=== PATIENT | male | born 2000 | race Hispanic/Latino ===

== ENCOUNTER 2023-09-22 00:14 | Emergency (ER) | payer OTHER, SELFPAY ==
[2023-09-22 00:59] LABS: Absolute Basophils 0.1 K/uL (0-0.5); Absolute Eosinophils 0.4 K/uL (0-0.5); Absolute Lymphocytes (CBC) 2.1 K/uL (0.7-4.9); Hemoglobin 13.8 g/dL (13.6-17.9)
[2023-09-22 01:04] LABS: Specific Gravity 1.027 (1.005-1.030); Sqamous Epithelial None Seen /HPF (None Seen); Urine Bacteria <20 /HPF (<20); Urine Bilirubin NEGATIVE (Negative); Urine Blood Negative (Negative); Urine Clarity Clear (Clear); Urine Color Light-Yellow (Yellow); Urine Culture Reflex Order NOT NEEDED; Urine Glucose NEGATIVE (Negative); Urine Ketones NEGATIVE (Negative); Urine Microscopic Reflex YN ORDER UMIC; Urine Mucus Slight /HPF (None Seen); Urine Nitrite NEGATIVE (Negative); Urine Protein TRACE (Negative); Urine RBC None Seen /HPF (None Seen); Urine Urobilinogen 1+ (Normal); Urine WBC <5 /HPF (<5); Urine Yeast (Budding) Trace /HPF (None Seen); Urine pH 6.5 (5.0-7.0)
[2023-09-22 01:06] LABS: Hematocrit 39.8 % (39.6-49.0); Lymphocytes % 24.7 % (15.3-44.8); MCH 31.8 pg (27.0-35.0); MCHC 34.6 g/dL (32.0-36.0); MCV 92.1 fL (80-100); MPV 7.9 fL (7.6-11.3); Monocytes % 11.1 % (3.3-12.3); Neutrophils % 58.2 % (41.7-73.7); Nucleated Red Blood Cells % 0.2 % (0-0); Platelets 299 thou/uL (152-406); RBC Red Blood Cell Count 4.33 M/uL (4.33-5.43)
[2023-09-22 01:10] LABS: Albumin 3.8 g/dL (3.4-5.0); Anion Gap 4.8 mEq/L (5.0-15.0); Bilirubin Total 0.5 mg/dL (0.2-1.0); Potassium 3.8 mEq/L (3.5-5.1); Protein, Total 7.8 g/dL (6.4-8.2)
[2023-09-22] MEDS ORDERED: ONDANSETRON 4 MG/2 ML VIAL ONE (01:25)
[2023-09-22] MEDS ORDERED: MORPHINE 4 MG/ML SYR ONE (01:26)
[2023-09-22] MEDS ORDERED: KETOROLAC 30 MG/ML INJ ONE (01:26)
[2023-09-22] MEDS ORDERED: NA CHLORIDE 0.9% 2,000 ML ONE (01:26)
--- NOTE | 2023-09-22 04:22 | ER ---
Nurse's Notes [facility] Name: Ranjith Dunn Jr Age: 23 yrs Sex: Male : 2000 Arrival Date: 09/22/2023 Time: 00:14 Bed 4 Private MD: Diagnosis: Nonspecific mesenteric lymphadenitis Presentation: 09/21 00:26 Chief complaint: Patient states: left lower abdominal pain. Denies N/V/D. Coronavirus vc1 screen: Client denies travel out of the [place] in the last 14 days. At this time, the client does not indicate any symptoms associated with coronavirus-19. Ebola Screen: Patient negative for fever greater than or equal to 101.5 degrees Fahrenheit, and additional compatible Ebola Virus Disease symptoms Patient denies exposure to infectious person. Patient denies travel to an Ebola-affected area in the 21 days before illness onset. No symptoms or risks identified at this time. Initial Sepsis Screen: Does the patient meet any 2 criteria? No. Patient's initial sepsis screen is negative. Does the patient have a suspected source of infection? No. Patient's initial sepsis screen is negative. Risk Assessment: Do you want to hurt yourself or someone else? Patient reports no desire to harm self or others. Onset of symptoms was September 22, 2023. 00:26 Method Of Arrival: Ambulatory vc1 00:26 Acuity: LILA 3 vc1 Triage Assessment: 00:32 General: Appears in no apparent distress. comfortable, slender, well groomed, Behavior vc1 is calm, cooperative, flat. Pain: Complains of pain in left lower quadrant Pain does not radiate. Pain currently is 7 out of 10 on a pain scale. at worst was 10 out of 10 on a pain scale. Quality of pain is described as sharp. EENT: No deficits noted. No signs and/or symptoms were reported regarding the EENT system. Neuro: Level of Consciousness is awake, alert, obeys commands, Oriented to person, place, time, situation, Appropriate for age. Cardiovascular: No deficits noted. Respiratory: Airway is patent Respiratory effort is even, unlabored, Respiratory pattern is regular, symmetrical. GI: Abdomen is flat, non-distended, Reports lower abdominal pain, Patient currently denies diarrhea, nausea, vomiting. : No deficits noted. No signs and/or symptoms were reported regarding the genitourinary system. Derm: Skin is intact, is healthy with good turgor, Skin is dry, Skin is normal, Skin temperature is warm. Musculoskeletal: Circulation, motion, and sensation intact. Range of motion: intact in all extremities, Parent/caregiver report the patient having. Historical: - Allergies: 00:28 ants; vc1 - PMHx: 00:28 None; vc1 - PSHx: 00:28 None; vc1 - Immunization history:: Adult Immunizations up to date, Client reports receiving the 2nd dose of the Covid vaccine. - Infectious Disease History:: Denies. - Social history:: Smoking status: Patient denies any tobacco usage or history of. - Family history:: not pertinent. Screenin:29 [facility] ED Fall Risk Assessment (Adult) History of falling in the last 3 months, vc1 including since admission No falls in past 3 months (0 pts) Confusion or Disorientation No (0 pts) Intoxicated or Sedated No (0 pts) Impaired Gait No (0 pts) Mobility Assist Device Used No (0 pt) Altered Elimination No (0 pt) Score/Fall Risk Level 0 - 2 = Low Risk Oriented to surroundings, Maintained a safe environment, Educated pt \T\ family on fall prevention, incl call for assistance when getting out of bed. Abuse screen: Denies threats or abuse. Nutritional screening: No deficits noted. Tuberculosis screening: No symptoms or risk factors identified. Assessment: 00:58 General: Appears in no apparent distress. Behavior is calm, cooperative. Pain: jm12 Complains of pain in abdomen. Neuro: No deficits noted. Cardiovascular: No deficits noted. Respiratory: No deficits noted. GI: Reports lower abdominal pain. : No deficits noted. No signs and/or symptoms were reported regarding the genitourinary system. EENT: No deficits noted. No signs and/or symptoms were reported regarding the EENT system. Derm: No deficits noted. No signs and/or symptoms reported regarding the dermatologic system. Musculoskeletal: No deficits noted. No signs and/or symptoms reported regarding the musculoskeletal system. 01:00 GI: Bowel sounds present X 4 quads. Abd is soft Abdomen is tender to palpation. jw7 02:00 Reassessment: Patient appears in no apparent distress at this time. No changes from jw7 previously documented assessment. Patient and/or family updated on plan of care and expected duration. Pain level reassessed. Patient is alert, oriented x 3, equal unlabored respirations, skin warm/dry/pink. 03:00 Reassessment: Patient appears in no apparent distress at this time. Patient and/or jw7 family updated on plan of care and expected duration. Pain level reassessed. Patient is alert, oriented x 3, equal unlabored respirations, skin warm/dry/pink. Patient states feeling better. 04:30 Reassessment: Patient appears in no apparent distress at this time. No changes from jw7 previously documented assessment. Patient and/or family updated on plan of care and expected duration. Pain level reassessed. Patient is alert, oriented x 3, equal unlabored respirations, skin warm/dry/pink. Vital Signs: 00:26 BP 151 / 72; Pulse 77; Resp 12; Temp 97.4; Pulse Ox 100% ; Weight 74.39 kg; Height 5 vc1 ft. 11 in. ; Pain 8/10; 02:07 BP 138 / 88; Pulse 76; Resp 16; Pulse Ox 100% ; Pain 4/10; jm12 02:43 BP 116 / 81; Pulse 76; Resp 16; Pulse Ox 100% ; jm12 03:21 Pain 4/10; jm12 04:20 BP 119 / 74; Pulse 83; Resp 19 S; Temp 97.8(O); Pulse Ox 98% on R/A; jw7 00:26 Body Mass Index 22.87 (74.39 kg, 180.34 cm) vc1 00:26 Pain Scale: Adult vc1 02:07 Pain Scale: Adult jm12 03:21 Pain Scale: Adult jm12 [place] Coma Score: 05:28 Eye Response: spontaneous(4). Motor Response: obeys commands(6). Verbal Response: sp4 oriented(5). Total: 15. ED Course: 00:18 Patient arrived in ED. gm2 00:28 Triage completed. vc1 00:28 Arm band placed on right wrist. vc1 00:29 Patient has correct armband on for positive identification. Bed in low position. Call vc1 light in reach. window dresser on. Pulse ox on. NIBP on. 00:32 Initial lab(s) drawn, by me, sent to lab. Inserted saline lock: 20 gauge in right ty antecubital area, using aseptic technique. Blood collected. Flushed with 10 mL NS. 00:41 Dewayne Chappell MD is Attending Physician. sp4 00:47 Urine collected: clean catch specimen, clear, sent to lab. ty 00:48 CBC with Diff Sent. ty 00:48 CMP Sent. ty 00:48 Lipase Sent. ty 00:48 Urinalysis w/ reflexes Sent. ty 01:00 Provided Education on: use of call light. jw7 01:52 CT Abd/Pelvis - IV Contrast Only In Process Unspecified. EDMS 04:44 No provider procedures requiring assistance completed. IV discontinued, intact, jw7 bleeding controlled, No redness/swelling at site. Pressure dressing applied. Administered Medications: 01:41 Drug: morphine IVP or IV 4 mg IVP once over 4 mins Route: IVP; Infused Over: 4 mins; [facility] Site: right antecubital; 04:31 Follow up: Response: No adverse reaction; Marked relief of symptoms jw7 01:41 Drug: Ondansetron IVP 4 mg IVP once; over 2 minutes Route: IVP; Site: right antecubital;[facility] 04:31 Follow up: Response: No adverse reaction; Marked relief of symptoms jw7 01:42 Drug: NS 0.9% IV 1000 ml IV at 1 bolus Per protocol; 1000 mL bolus Route: IV; Rate: 1 jm12 bolus; Site: right antecubital; 04:30 Follow up: Response: No adverse reaction; IV Status: Completed infusion; IV Intake: jw7 1000ml 01:42 Drug: NS 0.9% IV 1000 ml IV at 125 ml/hr continuous Route: IV; Rate: 125 ml/hr; Site: [facility] right antecubital; 04:30 Follow up: Response: No adverse reaction; IV Status: Completed infusion; IV Intake: jw7 400ml 01:42 Drug: Ketorolac IVP 30 mg IVP once Route: IVP; Site: right antecubital; [facility] 04:31 Follow up: Response: No adverse reaction; Marked relief of symptoms jw7 04:30 Drug: metroNIDAZOLE PO 500 mg PO once Route: PO; jw7 04:31 Follow up: Response: No adverse reaction; Medication administered at discharge. jw7 Medication: 00:29 VIS not applicable for this client. vc1 Intake: 04:30 IV: 1000ml; Total: 1000ml. jw7 04:30 IV: 400ml; Total: 1400ml. jw7 Outcome: 04:22 Discharge ordered by . sp4 04:44 Discharged to home ambulatory, jw7 04:44 Condition: stable 04:44 Discharge instructions given to patient, Instructed on discharge instructions, follow up and referral plans. medication usage, Demonstrated understanding of instructions, follow-up care, medications, Prescriptions given X 4, 04:45 Patient left the ED. jw7 Signatures: Dispatcher [employer] EDMS Minnie Flores RN RN vc1 Bere Ferraro, RN RN jw7 Dewayne Chappell MD MD sp4 Elana Evans gm2 Dheeraj Roberson Jessica RN RN jm12
--- NOTE | 2023-09-22 04:22 | EDPHYS ---
Physician Documentation [facility] Name: Ranjith Dunn Jr Age: 23 yrs Sex: Male : 2000 Arrival Date: 09/22/2023 Time: 00:14 Bed 4 Private MD: ED Physician Dewayne Chappell HPI: 09/21 01:05 This 23 yrs old Male presents to ER via Ambulatory with complaints of sp4 Abdominal Pain, LEFT SIDE ABD PAIN. 05:28 Presents with 3 days of left lower abdominal pain . sp4 Historical: - Allergies: 00:28 ants; vc1 - PMHx: 00:28 None; vc1 - PSHx: 00:28 None; vc1 - Immunization history:: Adult Immunizations up to date, Client reports receiving the 2nd dose of the Covid vaccine. - Infectious Disease History:: Denies. - Social history:: Smoking status: Patient denies any tobacco usage or history of. - Family history:: not pertinent. ROS: 05:28 Constitutional: Negative for fever, chills, and weight loss, for left lower abdominal sp4 pain 05:28 All other systems are negative, Exam: 05:28 Constitutional: This is a well developed, well nourished patient who is awake, alert, sp4 and in no acute distress. Head/Face: Normocephalic, atraumatic. Eyes: Pupils equal round and reactive to light, extra-ocular motions intact. Lids and lashes normal. Conjunctiva and sclera are not injected. Cornea within normal limits. Periorbital areas with no swelling, redness, or edema. ENT: Nares patent. No nasal discharge, no septal abnormalities noted. Tympanic membranes are normal and external auditory canals are clear. Oropharynx with no redness, swelling, or masses, exudates, or evidence of obstruction, uvula midline. Mucous membranes moist. Neck: Trachea midline, no thyromegaly or masses palpated, and no cervical lymphadenopathy. Supple, full range of motion without nuchal rigidity, or vertebral point tenderness. Chest/axilla: Normal chest wall appearance and motion. Nontender with no deformity. No lesions are appreciated. Cardiovascular: Regular rate and rhythm with a normal S1 and S2. No gallops, murmurs, or rubs. Normal PMI, no JVD. No pulse deficits. Respiratory: Lungs have equal breath sounds bilaterally, clear to auscultation and percussion. No rales, rhonchi or wheezes noted. No increased work of breathing, no retractions or nasal flaring. Abdomen/GI: Soft, with normal bowel sounds. No distension or tympany. No guarding or rebound. Positive left lower tenderness Back: No spinal tenderness. No costovertebral tenderness. Skin: Warm, dry with normal turgor. Normal color with no rashes, no lesions, and no evidence of cellulitis. MS/ Extremity: Pulses equal, no cyanosis. Neurovascular intact. Full, normal range of motion. Neuro: Awake and alert, GCS 15, oriented to person, place, time, and situation. Cranial nerves II-XII grossly intact. Motor strength 5/5 in all extremities. Sensory grossly intact. Psych: Awake, alert, with orientation to person, place and time. Behavior, mood, and affect are within normal limits Vital Signs: 00:26 BP 151 / 72; Pulse 77; Resp 12; Temp 97.4; Pulse Ox 100% ; Weight 74.39 kg; Height 5 vc1 ft. 11 in. ; Pain 8/10; 02:07 BP 138 / 88; Pulse 76; Resp 16; Pulse Ox 100% ; Pain 4/10; jm12 02:43 BP 116 / 81; Pulse 76; Resp 16; Pulse Ox 100% ; jm12 03:21 Pain 4/10; jm12 04:20 BP 119 / 74; Pulse 83; Resp 19 S; Temp 97.8(O); Pulse Ox 98% on R/A; jw7 00:26 Body Mass Index 22.87 (74.39 kg, 180.34 cm) vc1 00:26 Pain Scale: Adult vc1 02:07 Pain Scale: Adult jm12 03:21 Pain Scale: Adult jm12 [place] Coma Score: 05:28 Eye Response: spontaneous(4). Motor Response: obeys commands(6). Verbal Response: sp4 oriented(5). Total: 15. MDM: 01:04 Patient medically screened. sp4 04:11 ED course: PROCEDURE: Contrast-enhanced images of the abdomen and pelvis were performed sp4 from the lung bases to the ischial tuberosities after the administration of IV contrast. In addition multiplanar reformats in the coronal and sagittal plane were obtained and reviewed. An individualized dose optimization technique, Automated Exposure Control, was utilized for the performed procedure. FINDINGS: Lung bases: The lung bases demonstrate to be clear. Liver: The liver demonstrates to be normal, no focal lesions identified. Gallbladder: The gallbladder demonstrate to be normal. Adrenal glands: The adrenal glands demonstrate to be normal. Pancreas: The pancreas demonstrate to be normal. Spleen: The spleen demonstrate to be within normal limits. Kidneys: The kidneys demonstrate normal uptake of contrast media. There is no evidence for nephrolithiasis and/or hydronephrosis. GI: Grossly the unopacified stomach, small bowel and large bowel demonstrate to be within normal limits. No evidence for bowel dilatation and/or free air. The appendix is normal. The left-sided colon demonstrate to be decompressed with no gross abnormalities. There is a prominent left mesenteric root lymph node with surrounding haziness measuring 15 x 21 mm on axial image 31/107 and coronal image 35/104. : The urinary bladder demonstrate to be unremarkable. Genitalia: The prostate gland is normal. Abdominal aorta: The aorta demonstrate to be within normal limits. Retroperitoneum:There is no retroperitoneal lymphadenopathy. There is no evidence for ascites and/or abnormal fluid collections. Bones: The bony structures demonstrate to be within normal limits. No evidence for compression deformity and/or significant skeletal lesions. Soft tissues: The soft tissues demonstrate to be unremarkable. IMPRESSION: Prominent left mesenteric root lymph node with surrounding haziness measuring 15 x 21 mm, nonspecific, but may be seen in mesenteric adenitis and/or infiltrate process. Otherwise unremarkable CT scan of the abdomen and pelvis with contrast. . 05:28 Differential diagnosis: appendicitis, cholecystitis, Cholelithiasis, diverticulitis, sp4 Hepatitis. Data reviewed: vital signs, nurses notes, lab test result(s), radiologic studies, CT scan. Consideration of Admission/Observation Escalation of care including admission/observation considered. ED course: stable for discharge home. . 08 00:29 Order name: CBC with Diff; Complete Time: 04: sb4 09/21 00:29 Order name: CMP; Complete Time: 04: sb4 09/21 00:29 Order name: Lipase; Complete Time: 04: sb4 08 00:29 Order name: Urinalysis w/ reflexes; Complete Time: 04: sb4 09/21 01:21 Order name: C-Reactive Protein; Complete Time: 04:07 EDMS 09/21 01:11 Order name: CT Abd/Pelvis - IV Contrast Only; Complete Time: 18:39 sp4 09/21 00:29 Order name: IV Saline Lock; Complete Time: 00:48 sb4 09/21 00:29 Order name: Labs collected and sent; Complete Time: 00:48 sb4 09/21 01:10 Order name: NPO; Complete Time: 01:23 sp4 Administered Medications: 01:41 Drug: morphine IVP or IV 4 mg IVP once over 4 mins Route: IVP; Infused Over: 4 mins; [facility] Site: right antecubital; 04:31 Follow up: Response: No adverse reaction; Marked relief of symptoms jw7 01:41 Drug: Ondansetron IVP 4 mg IVP once; over 2 minutes Route: IVP; Site: right antecubital;[facility] 04:31 Follow up: Response: No adverse reaction; Marked relief of symptoms jw7 01:42 Drug: NS 0.9% IV 1000 ml IV at 1 bolus Per protocol; 1000 mL bolus Route: IV; Rate: 1 [facility] bolus; Site: right antecubital; 04:30 Follow up: Response: No adverse reaction; IV Status: Completed infusion; IV Intake: jw7 1000ml 01:42 Drug: NS 0.9% IV 1000 ml IV at 125 ml/hr continuous Route: IV; Rate: 125 ml/hr; Site: [facility] right antecubital; 04:30 Follow up: Response: No adverse reaction; IV Status: Completed infusion; IV Intake: jw7 400ml 01:42 Drug: Ketorolac IVP 30 mg IVP once Route: IVP; Site: right antecubital; [facility] 04:31 Follow up: Response: No adverse reaction; Marked relief of symptoms jw7 04:30 Drug: metroNIDAZOLE PO 500 mg PO once Route: PO; jw7 04:31 Follow up: Response: No adverse reaction; Medication administered at discharge. jw7 Disposition Summary: 09/22/23 04:22 Discharge Ordered Notes: Location: Home sp4 Problem: new sp4 Symptoms: have improved sp4 Condition: Stable sp4 Diagnosis - Nonspecific mesenteric lymphadenitis sp4 Followup: sp4 - With: Private Physician - When: 7 - 10 days - Reason: Recheck today's complaints Discharge Instructions: - Discharge Summary Sheet sp4 - Mesenteric Adenitis, Adult sp4 Forms: - Work release form sp4 Prescriptions: - Cephalexin 500 mg Oral Capsule - take 1 capsule ORAL route every 12 hours for 10 days; 20 capsule; Refills: 0, sp4 Product Selection Permitted - Flagyl 500 mg Oral Tablet - take 1 tablet ORAL route every 8 hours for 10 days; 30 tablet; Refills: 0, sp4 Product Selection Permitted - Ibuprofen 800 mg Oral Tablet - take 1 tablet ORAL route every 8 hours As needed take with food; 30 tablet; sp4 Refills: 0, Product Selection Permitted - ondansetron 8 mg Oral Tablet,disintegrating - take 1 tablet ORAL route every 8 hours PRN nausea; 30 tablet; Refills: 0, sp4 Product Selection Permitted Signatures: Dispatcher [employer] EDMS Minnie Flores RN RN vc1 Bere Ferraro RN RN jw7 Latrice Lopez PA-C PARandall sb4 Dewayne Chappell MD MD sp4 Elodia Marin RN RN jm12 Corrections: (The following items were deleted from the chart) 01:21 01:11 C-REACTIVE PROTEIN+C.LAB.BRZ ordered. EDMS EDMS
[2023-09-22] MEDS ORDERED: metroNIDAZOLE 500 MG TABLET ONE (04:24)
[2023-09-22 08:17] VITALS: BP 119/74; TEMP 97.8; O2SAT 98
--- NOTE | 2023-09-22 13:39 | RAD REPORT ---
EXAM DESCRIPTION: CT - Abdomen Pelvis W Contrast - 09/22/2023 1:50 am CLINICAL HISTORY: 23 years, Male, Left lower abdominal pain. COMPARISON: None. TECHNIQUE: Contrast-enhanced images of the abdomen and pelvis were performed from the lung bases to the ischial tuberosities after the administration of IV contrast. In addition multiplanar reformats in the coronal and sagittal plane were obtained and reviewed. An individualized dose optimization technique, Automated Exposure Control, was utilized for the perfo rmed procedure. FINDINGS: Lung bases: The lung bases demonstrate to be clear. Liver: The liver demonstrates to be normal, no focal lesions identified. Gallbladder: The gallbladder demonstrate to be normal. Adrenal glands: The adrenal glands demonstrate to be normal. Pancreas: The pancreas demonstrate to be normal. Spleen: The spleen demonstrate to be within normal limits. Kidneys: The kidneys demonstrate normal uptake of contrast media. There is no evidence for nephroli thiasis and/or hydronephrosis. GI: Grossly the unopacified stomach, small bowel and large bowel demonstrate to be within normal limi ts. No evidence for bowel dilatation and/or free air. The appendix is normal. The left-sided colon de monstrate to be decompressed with no gross abnormalities. There is a prominent left mesenteric root lymph node with surrounding haziness measuring 15 x 21 mm o n axial image 31/107 and coronal image 35/104. : The urinary bladder demonstrate to be unremarkable. Genitalia: The prostate gland is normal. Abdominal aorta: The aorta demonstrate to be within normal limits. Retroperitoneum: There is no retroperitoneal lymphadenopathy. There is no evidence for ascites and/or abnormal fluid collections. Bones: The bony structures demonstrate to be within normal limits. No evidence for compression deform ity and/or significant skeletal lesions. Soft tissues: The soft tissues demonstrate to be unremarkable. IMPRESSION: Prominent left mesenteric root lymph node with surrounding haziness measuring 15 x 21 mm , nonspecific, but may be seen in mesenteric adenitis and/or infiltrate process. Otherwise unremarkable CT scan of the abdomen and pelvis with contrast. Electronically signed by: Elías Bernal MD 09/22/2023 02:13 AM CDT RP Due to temporary technical issues with the PACS/Fluency reporting system, reports are being signed by the in house radiologist without review as a courtesy to ensure prompt reporting. The interpreting r adiologist is fully responsible for the content of the report.
== END 2023-09-22 04:45 | disposition home or self-care (01) ==
LOC: ER 00:14
DX: I88.0 Nonspecific mesenteric lymphadenitis (principal)
CPT/HCPCS: 36415; 74177; 80053; 81001; 83690; 85025; 86140; 96361; 96374; 96375; 99285; J2405; J7030; Q9967

== ENCOUNTER 2024-02-25 00:07 | Emergency (ER) | payer SELFPAY ==
[2024-02-25] MEDS ORDERED: TETRACAINE HCL 0.5% 4ML OPTH ONE (00:31)
[2024-02-25] MEDS ORDERED: FLUORESCEIN SODIUM 1 MG/WRAP ONE (00:32)
--- NOTE | 2024-02-25 01:10 | ER ---
Nurse's Notes [facility] Name: Ranjith Dunn Jr Age: 23 yrs Sex: Male : 2000 Arrival Date: 02/25/2024 Time: 00:07 Bed 17 Private MD: Diagnosis: Right upper Eyelid abrasion, Cat scratch Presentation: 02/24 00:15 Chief complaint: Patient states: My cat scratched my left eye. Coronavirus screen: vc1 Client denies travel out of the [place] in the last 14 days. At this time, the client does not indicate any symptoms associated with coronavirus-19. Ebola Screen: Patient negative for fever greater than or equal to 101.5 degrees Fahrenheit, and additional compatible Ebola Virus Disease symptoms Patient denies exposure to infectious person. Patient denies travel to an Ebola-affected area in the 21 days before illness onset. No symptoms or risks identified at this time. Complicating Factors: cat scratch. Initial Sepsis Screen: Does the patient meet any 2 criteria? No. Patient's initial sepsis screen is negative. Does the patient have a suspected source of infection? No. Patient's initial sepsis screen is negative. Risk Assessment: Do you want to hurt yourself or someone else? Patient reports no desire to harm self or others. Onset of symptoms was February 25, 2024. Care prior to arrival: None. Activity prior to arrival: None. Mechanism of Injury: scratch. Transition of care: patient was not received from another setting of care. 00:15 Method Of Arrival: Ambulatory vc1 00:15 Acuity: LILA 4 vc1 Triage Assessment: 00:21 General: Appears in no apparent distress. uncomfortable, slender, well groomed, well vc1 developed, well nourished, Behavior is cooperative, anxious. Pain: Complains of pain in left eye Pain does not radiate. Pain currently is 4 out of 10 on a pain scale. Quality of pain is described as burning. EENT: Eyes are tearing on left eye Reports blurred vision in left eye pain in left eye. Neuro: Level of Consciousness is awake, alert, obeys commands, Oriented to person, place, time, situation, Appropriate for age. Cardiovascular: Capillary refill < 3 seconds Patient's skin is warm and dry. Respiratory: Airway is patent Respiratory effort is even, unlabored, Respiratory pattern is regular, symmetrical. GI: No deficits noted. No signs and/or symptoms were reported involving the gastrointestinal system. : No deficits noted. No signs and/or symptoms were reported regarding the genitourinary system. Derm: Skin is intact, is healthy with good turgor, Skin is dry, Skin is normal, Skin temperature is warm. Musculoskeletal: Circulation, motion, and sensation intact. Range of motion: intact in all extremities. Injury Description: Laceration sustained to left eye. Historical: - Allergies: 00:18 ants; vc1 - PMHx: 00:18 None; vc1 - PSHx: 00:18 None; vc1 - Immunization history:: Client reports receiving the 2nd dose of the Covid vaccine, Flu vaccine is not up to date. - Infectious Disease History:: Denies. - Social history:: Smoking status: Reported history of juuling and/or vaping. - Family history:: not pertinent. Screenin:20 [facility] ED Fall Risk Assessment (Adult) History of falling in the last 3 months, vc1 including since admission No falls in past 3 months (0 pts) Confusion or Disorientation No (0 pts) Intoxicated or Sedated No (0 pts) Impaired Gait No (0 pts) Mobility Assist Device Used No (0 pt) Altered Elimination No (0 pt) Score/Fall Risk Level 0 - 2 = Low Risk Oriented to surroundings, Maintained a safe environment, Educated pt \T\ family on fall prevention, incl call for assistance when getting out of bed. Abuse screen: Denies threats or abuse. Nutritional screening: No deficits noted. Tuberculosis screening: No symptoms or risk factors identified. Assessment: 00:14 Injury Description: Laceration sustained to left upper eyelid is clean, superficial. rg5 00:15 General: Appears in no apparent distress. comfortable, Behavior is calm, cooperative, rg5 appropriate for age. 00:15 Pain: Denies pain. Neuro: Level of Consciousness is awake, alert, obeys commands, rg5 Oriented to person, place, time. Cardiovascular: Denies chest pain, Patient's skin is warm and dry. Respiratory: Airway is patent Trachea midline Respiratory effort is even, unlabored, Respiratory pattern is regular, symmetrical. GI: Abdomen is flat, non-distended, Abd is soft and non tender. : No signs and/or symptoms were reported regarding the genitourinary system. EENT: Reports blurred vision in iris of left eye laceration on upper eyelid. Derm: No signs and/or symptoms reported regarding the dermatologic system. Musculoskeletal: Circulation, motion, and sensation intact. Range of motion: intact in all extremities. Vital Signs: 00:15 BP 129 / 71; Pulse 82; Resp 15; Temp 97.9; Pulse Ox 100% ; Weight 81.65 kg; Height 6 vc1 ft. 0 in. ; Pain 4/10; 00:15 Body Mass Index 24.41 (81.65 kg, 182.88 cm) vc1 00:15 Pain Scale: Adult vc1 Visual Acuity: 00:56 Left Eye Visual acuity 20/20, Normal; Right Eye Visual acuity 20/20, Normal; Both Eyes rg5 Visual acuity 20/20; With Lenses; [place] Coma Score: 03:13 Eye Response: spontaneous(4). Motor Response: obeys commands(6). Verbal Response: sp4 oriented(5). Total: 15. ED Course: 00:00 Assist provider with eye exam of left eye. using fluorescein stain, Performed by Dewayne Chappell MD Patient tolerated well. 00:00 Patient did not have IV access during this emergency room visit. rg5 00:09 Patient arrived in ED. ra3 00:12 Dewayne Chappell MD is Attending Physician. sp4 00:15 Ted Mortensen, JONATHAN is Primary Nurse. rg5 00:15 Door closed. Noise minimized. Verbal reassurance given. rg5 00:17 Triage completed. vc1 00:19 Arm band placed on right wrist. vc1 00:21 Patient has correct armband on for positive identification. Bed in low position. Call vc1 light in reach. Provided Education on: call light. Pulse ox on. NIBP on. Administered Medications: 00:45 Drug: Tetracaine Ophthalmic Drops 0.5 % 1 drops Ophthalmic once {Note: given by rg5 provider.} Route: Ophthalmic; Site: left eye; 01:13 Drug: Doxycycline PO 100 mg PO once Route: PO; rg5 01:21 Follow up: Response: No adverse reaction rg5 Medication: 00:20 VIS not applicable for this client. vc1 Outcome: 01:10 Discharge ordered by . sp4 01:18 Discharged to home ambulatory, rg5 01:18 Condition: stable 01:18 Discharge instructions given to patient, Instructed on discharge instructions, follow up and referral plans. Demonstrated understanding of instructions, follow-up care, medications, Prescriptions given X 1, 01:20 Patient left the ED. rg5 Signatures: Minnie Flores RN RN 1 Dewayne Chappell MD MD sp4 Zhane Kwon ra3 Ted Mortensen RN RN rg5
--- NOTE | 2024-02-25 01:10 | EDPHYS ---
Physician Documentation [facility] Name: Ranjith Dunn Jr Age: 23 yrs Sex: Male : 2000 Arrival Date: 02/25/2024 Time: 00:07 Bed 17 Private MD: ED Physician Dewayne Chappell HPI: 02/24 00:12 This 23 yrs old Male presents to ER via Unassigned with complaints of sp4 Laceration - to eye/Blurry vision. 03:13 23-year-old male presents with acute scratch to the left upper eyelid.. Patient reports sp4 he was scratched by his cat who accidentally clawed his left upper eyelid. Denied any other problems. Historical: - Allergies: 00:18 ants; vc1 - PMHx: 00:18 None; vc1 - PSHx: 00:18 None; vc1 - Immunization history:: Client reports receiving the 2nd dose of the Covid vaccine, Flu vaccine is not up to date. - Infectious Disease History:: Denies. - Social history:: Smoking status: Reported history of juuling and/or vaping. - Family history:: not pertinent. ROS: 03:13 Constitutional: Negative for fever, chills, and weight loss, positive cat scratch to sp4 left upper eyelid 03:13 All other systems are negative, Exam: 03:13 Constitutional: This is a well developed, well nourished patient who is awake, alert, sp4 and in no acute distress. Head/Face: Normocephalic, atraumatic. Eyes: Pupils equal round and reactive to light, extra-ocular motions intact. Lids of the right eye are normal.. Conjunctiva and sclera are not injected. Cornea within normal limits. Periorbital areas with no swelling, redness, or edema. Left upper eyelid contains deep abrasion 5 mm long and shallow abrasion about 1 cm long. Fluorescein eye exam reveals no corneal abrasions. ENT: Nares patent. No nasal discharge, no septal abnormalities noted. Tympanic membranes are normal and external auditory canals are clear. Oropharynx with no redness, swelling, or masses, exudates, or evidence of obstruction, uvula midline. Mucous membranes moist. Neck: Trachea midline, no thyromegaly or masses palpated, and no cervical lymphadenopathy. Supple, full range of motion without nuchal rigidity, or vertebral point tenderness. Chest/axilla: Normal chest wall appearance and motion. Nontender with no deformity. No lesions are appreciated. Cardiovascular: Regular rate and rhythm with a normal S1 and S2. No gallops, murmurs, or rubs. Normal PMI, no JVD. No pulse deficits. Respiratory: Lungs have equal breath sounds bilaterally, clear to auscultation and percussion. No rales, rhonchi or wheezes noted. No increased work of breathing, no retractions or nasal flaring. Abdomen/GI: Soft, with normal bowel sounds. No distension or tympany. No guarding or rebound. No evidence of tenderness throughout. Back: No spinal tenderness. No costovertebral tenderness. Skin: Warm, dry with normal turgor. Normal color with no rashes, no lesions, and no evidence of cellulitis. MS/ Extremity: Pulses equal, no cyanosis. Neurovascular intact. Full, normal range of motion. Neuro: Awake and alert, GCS 15, oriented to person, place, time, and situation. Cranial nerves II-XII grossly intact. Motor strength 5/5 in all extremities. Sensory grossly intact. Vital Signs: 00:15 BP 129 / 71; Pulse 82; Resp 15; Temp 97.9; Pulse Ox 100% ; Weight 81.65 kg; Height 6 vc1 ft. 0 in. ; Pain 4/10; 00:15 Body Mass Index 24.41 (81.65 kg, 182.88 cm) vc1 00:15 Pain Scale: Adult vc1 [place] Coma Score: 03:13 Eye Response: spontaneous(4). Motor Response: obeys commands(6). Verbal Response: sp4 oriented(5). Total: 15. Visual Acuity: 00:56 Left Eye Visual acuity 20/20, Normal; Right Eye Visual acuity 20/20, Normal; Both Eyes rg5 Visual acuity 20/20; With Lenses; MDM: 00:29 Medical Screening Exam initiated sp4 03:15 Differential diagnosis: superficial laceration, tendon injury, vascular injury. Data sp4 reviewed: vital signs, nurses notes, old medical records. ED course: Left upper eyelid abrasion is too shallow for suturing. Stable for discharge home with doxycycline to prevent wound infection. 02/24 00:29 Order name: Eye Tray; Complete Time: 00:45 sp4 02/24 00:29 Order name: Fluoresene Opth strip; Complete Time: 00:46 sp4 Administered Medications: 00:45 Drug: Tetracaine Ophthalmic Drops 0.5 % 1 drops Ophthalmic once {Note: given by rg5 provider.} Route: Ophthalmic; Site: left eye; 01:13 Drug: Doxycycline PO 100 mg PO once Route: PO; rg5 01:21 Follow up: Response: No adverse reaction rg5 Disposition Summary: 02/25/24 01:10 Discharge Ordered Notes: Location: Home sp4 Problem: new sp4 Symptoms: have improved sp4 Condition: Stable sp4 Diagnosis - Right upper Eyelid abrasion, Cat scratch sp4 Followup: sp4 - With: Private Physician - When: 7 - 10 days - Reason: Recheck today's complaints Discharge Instructions: - Discharge Summary Sheet sp4 - Abrasion, [id number] sp4 Forms: - Patient Portal Instructions sp4 Prescriptions: - Doxycycline Hyclate 100 mg Oral Tablet - take 1 tablet ORAL route every 12 hours; 20 tablet; Refills: 0, Product sp4 Selection Permitted Signatures: Minnie Flores RN RN vc1 Dewayne Chappell MD MD sp4 Ted Mortensen RN RN rg5
[2024-02-25] MEDS ORDERED: DOXYCYCLINE 100 MG CAP PO ONE (01:14)
[2024-02-25 01:25] VITALS: BP 129/71; TEMP 97.9; O2SAT 100
== END 2024-02-25 01:20 | disposition home or self-care (01) ==
LOC: ER 00:07
DX: S00.211A Abrasion of right eyelid and periocular area, initial encounter (principal); W55.03XA Scratched by cat, initial encounter
CPT/HCPCS: 99284